=== PATIENT | male | born 1975 | race Caucasian/White ===

== ENCOUNTER 2020-08-18 17:50 | Emergency (ER) | payer OTHER ==
[~2020-08-18] VITALS: Ht 180.3 cm; Wt 81.6 kg
[2020-08-18] MEDS ORDERED: CARAFATE1 GM PO (21:40)
[2020-08-18] MEDS ORDERED: PROTONIX40 MG PO (21:40)
[2020-08-18] MEDS ORDERED: PEPCID AC20 MG PO (21:40)
== END 2020-08-19 13:47 | disposition home or self-care (01) ==
LOC: ER 17:50
DX: R10.13 Epigastric pain (principal); K29.60 Other gastritis without bleeding; Z20.822 Contact with and (suspected) exposure to COVID-19; K29.80 Duodenitis without bleeding; K80.20 Calculus of gallbladder without cholecystitis without obstruction

== ENCOUNTER 2020-11-17 08:00 | Outpatient (CLI) | payer OTHER ==
[~2020-11-17 08:00] MED LIST: CARAFATE1 GM PO; PEPCID AC20 MG PO; PROTONIX40 MG PO
== END 2020-11-17 15:00 | disposition home or self-care (01) ==
LOC: LAB 08:00
PROVIDERS: ATTEND Internal Medicine
DX: D68.8 Other specified coagulation defects (principal); I10 Essential (primary) hypertension; Z01.810 Encounter for preprocedural cardiovascular examination

== ENCOUNTER 2020-11-29 05:30 | Day surgery (SDC) | payer OTHER ==
[2020-11-29] MEDS ORDERED: ULTRACET PO (10:51)
[2020-11-29] MEDS ORDERED: KEFLEX750 MG PO (10:52)
[2020-11-29] MEDS ORDERED: PROTONIX20 MG PO (10:53)
== END 2020-11-29 12:50 | disposition home or self-care (01) ==
LOC: CIR.AMB 05:30
PROVIDERS: ATTEND Surgery
DX: K42.0 Umbilical hernia with obstruction, without gangrene (principal); K80.10 Calculus of gallbladder with chronic cholecystitis without obstruction; Z20.822 Contact with and (suspected) exposure to COVID-19

== ENCOUNTER 2023-06-07 21:22 | Emergency (ER) | payer OTHER ==
[~2023-06-07] VITALS: Ht 180.3 cm; Wt 83.0 kg
[~2023-06-07 21:22] MED LIST changes: +KEFLEX750 MG PO; +PROTONIX20 MG PO; +ULTRACET PO
[2023-06-07 23:16] LABS: HEMATOCRIT 42.1 % (39.0-48.0); HEMOGLOBIN 14.5 g/dL (13-16.00); MEAN CELL VOLUME 90.2 fL (80.0-100.00); MEAN CORPUSCULAR HGB CONC 34.4 g/dl (32.0-36.0); PLATELET COUNT 210 K/uL (150-450); RED BLOOD COUNT 4.67 M/uL (4.00-6.00); RED CELL DISTRIBUTION WIDTH 13.4 % (11.5-14.5)
[2023-06-07 23:34] LABS: ALBUMIN 3.8 gm/dL (3.4-5.0); BILIRUBIN TOTAL 0.59 mg/dL (0.3-1.2); CALCIUM 8.9 mg/dL (8.5-10.1); CREATININE SERUM 1.11 mg/dL (0.70-1.30); GFR 71.32; GLOBULINA 3.9 G/DL (2.4-3.5); POTASSIUM 3.99 mEq/L (3.5-5.1); TOTAL PROTEIN 7.7 gm/dL (6.4-8.2)
== END 2023-06-08 00:05 | disposition home or self-care (01) ==
LOC: ER
PROVIDERS: General Practice
DX: K29.70 Gastritis, unspecified, without bleeding (principal); Z91.013 Allergy to seafood

== ENCOUNTER 2025-01-28 11:21 | Emergency (ER) | payer OTHER ==
[~2025-01-28] VITALS: Ht 180.3 cm; Wt 85.7 kg
[2025-01-28] MEDS ORDERED: CEFAZOLIN SODIUM 1,000 MG VIAL IM STA (14:16)
== END 2025-01-28 14:37 | disposition home or self-care (01) ==
LOC: ER 11:35
DX: S81.822A Laceration with foreign body, left lower leg, initial encounter (principal); X58.XXXA Exposure to other specified factors, initial encounter; Y93.89 Activity, other specified; Y92.89 Other specified places as the place of occurrence of the external cause; Z91.013 Allergy to seafood
CPT/HCPCS: 12004; 96372; 99282; J0690

== ENCOUNTER 2025-02-07 08:40 | Emergency (ER) | payer OTHER ==
[~2025-02-07] VITALS: Ht 180.3 cm; Wt 85.7 kg
== END 2025-02-07 12:04 | disposition home or self-care (01) ==
LOC: ER 08:40
DX: Z48.02 Encounter for removal of sutures (principal); Z91.013 Allergy to seafood